=== PATIENT | female | born 1945 | race African-American/Black ===

== ENCOUNTER 2018-03-23 08:57 | Day surgery (SDC) | payer OTHER ==
[~2018-03-23 08:57] MED LIST: CEFAZOLIN SODIUM/DEXTROSE,ISO 1 GM/50 ML PIGGYBACK IV ONE; DEXAMETHASONE SOD PHOS 4 MG/ML VIAL ONE; FENTANYL CITRATE/PF 250 MCG/5 ML INJ. ONE; GLYCOPYRROLATE 0.2 MG/1 ML 1 ML ONE; HYDROmorphone HCL/PF 2 MG/ML VIAL ONE; LACTATED RINGERS 1,000 ML IV.SOLN IV ONE; LIDOCAINE HCL 2% PF 100MG/5ML VIAL IJ ONE; MIDAZOLAM HCL 2 MG/2 ML VIAL ONE; ONDANSETRON HCL/PF 4 MG/ 2ML VIAL ONE; PHENYLEPHRINE HCL 10 MG/1 ML ONE; PROPOFOL 200 MG/20 ML VIAL IV ONE; ROCURONIUM BROMIDE 10 MG/ML 5ML VIAL ONE; SEVOFLURANE 250 ML LIQUID IH ONE; SUGAMMADEX SODIUM 200 MG/2 ML VIAL IV ONE; ceFAZolin SODIUM 1 GM VIAL ONE; ePHEDrine SULFATE 50 MG/1 ML IVP ONE
[2018-03-23] MEDS ORDERED: LACTATED RINGERS 1,000 ML IV ONE (09:17)
[2018-03-23] MEDS ORDERED: HYDROmorphone HCL/PF 2 MG/ML VIAL ONE (20:29)
== END 2018-03-23 21:15 ==
LOC: OPSURG 08:57
PROVIDERS: ATTEND Orthopaedic Surgery
DX: M48.061 Spinal stenosis, lumbar region without neurogenic claudication (principal); M43.16 Spondylolisthesis, lumbar region
CPT/HCPCS: 20936; 22633; 22842; 22853; 36415; 63047; 63048; J0690; J1100; J1170; J2001; J2250; J2370; J2405; J2704; J3490; J7120; J2307

== ENCOUNTER 2018-03-23 20:59 | Inpatient (IN) | payer OTHER ==
[2018-03-23] MEDS ORDERED: ACETAMINOPHEN 500 MG TABLET PO PRN (21:04)
[2018-03-23] MEDS ORDERED: diphenhydrAMINE HCL 25 MG TABLET PO PRN (21:04)
[2018-03-23] MEDS ORDERED: PROMETHAZINE HCL 25 MG in 0.9 % SODIUM CHLORIDE 50 ML IV PRN (21:04)
[2018-03-23] MEDS ORDERED: ONDANSETRON HCL/PF 4 MG/ 2ML VIAL IVP PRN (21:04)
[2018-03-23] MEDS ORDERED: DIAZEPAM 5 MG TABLET PO PRN (21:04)
[2018-03-23] MEDS ORDERED: MORPHINE SULFATE 4 MG/ML VIAL IVP PRN (21:04)
[2018-03-23] MEDS ORDERED: LEVALBUTEROL HCL 1.25 MG/3 ML VIAL.NEB IH PRN (21:04)
--- NOTE | 2018-03-23 22:07 | History and Physical Report ---
History of Present Illnes - History of Present Illness Reason for Visit: S/P lumbar total disc replacement History of Present Illness: Patient is a 72-year-old female being admitted observation s/p lumbar total disc replacement. She has a chronic history of back pain with history of laminectomy to L2-3, L4-5. It was decided by patient and surgeon to move forward with lumbar surgical procedure. 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 Dressing has some moderate bleeding to the back- small area expressing blood- will reinforce dressing. We will get a.m. labs to check H & H and will monitor patient closely this evening. Explained that we would get her up and walk when she felt able, would try clear liquid diet and advance as tolerated. Patient appears to be resting comfortably at this time- daughter is at the bedside. Patient arrived to room around 21:00 this evening. 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 denies: Influenza Vaccine, Pneumococcal Vaccine Influenza Vaccine: No, Patient Refused Pneumonia Vaccine: No Resuscitation Status: Resusciation Status Resuscitation Status Full Code - Unable to Obtain History Unable to Obtain: No Review of Systems - Review of Systems Constitutional: Weakness Eyes: negative: pain, vision change ENT: negative: Ear Pain, Nose Discharge, Throat Pain Respiratory: negative: Cough, Shortness of Breath Cardiovascular: negative: Chest Pain, Light Headedness Gastrointestinal: negative: Nausea, Vomiting, Abdominal Pain Genitourinary: negative: Dysuria Musculoskeletal: Back Pain Skin: negative: Rash Neurological: Weakness. negative: Numbness, Change in Speech - Medications/Allergies Allergies/Adverse Reactions: Allergies Allergy/AdvReac Type Severity Reaction Status Date / Time alendronate sodium Allergy Unknown Verified 03/24/18 07:46 [From Fosamax] aspirin Allergy Unknown Verified 03/24/18 07:46 diclofenac Allergy Unknown Verified 03/24/18 07:46 guaifenesin Allergy Unknown Verified 03/24/18 07:46 raloxifene [From Evista] Allergy Unknown Verified 03/24/18 07:46 simvastatin [From Zocor] Allergy Unknown Verified 03/24/18 07:46 sodium citrate Allergy Unknown Verified 03/24/18 07:46 Sulfa (Sulfonamide Allergy Unknown Verified 03/24/18 07:46 Antibiotics) Home Medications: Home Medications Calcium Carbonate/Vitamin D3 [Calcium 600 + Vit D Caplet] 1 each PO DAILY 03/23/18 Cyclobenzaprine HCl 30 mg PO TID 03/23/18 Famotidine 40 mg PO DAILY 03/23/18 HYDROcodone /APAP 5/325 [[place] 5/325] 1 each PO Q4 PRN 03/23/18 Meloxicam 15 mg PO DAILY 03/23/18 [place]-3 Fatty Acids/Fish Oil [Fish Oil 1,000 mg Capsule] 1 each PO DAILY 03/23/18 Rosuvastatin Calcium [Crestor] 20 mg PO HS 03/23/18 Triamterene/Hydrochlorothiazid [Triamterene-Hctz 37.5-25 mg Tb] 1 each PO DAILY 03/23/18 Current Inpatient Medications: Current Inpatient Medications Acetaminophen (Tylenol Extra Strength) 500 mg PO Q4 PRN PRN Reason: for mild pain 1-4/fever Cyclobenzaprine HCl (Flexeril) 30 mg PO TID [facility] Diazepam (Valium) 5 mg PO Q8H PRN PRN Reason: Anxiety/muscle spasm Diphenhydramine HCl (Benadryl) 25 mg PO Q4 PRN PRN Reason: Itching or Pruritis Potassium Chloride/Dextrose/Sod Cl ([id number]) 1,000 mls @ 75 mls/hr IV Q12H [facility] Promethazine HCl 25 mg/ Sodium (Chloride) 51 mls @ 600 mls/hr IV Q6 PRN PRN Reason: Nausea / Vomiting Stop: 03/27/18 21:03 Levalbuterol HCl (Xopenex Inh Soln) 1.25 mg IH Q4H PRN PRN Reason: shortness of breath Miscellaneous (Famotidine [Famotidine]) 40 mg PO DAILY REPLACED BY [facility] Miscellaneous (Meloxicam [Meloxicam]) 15 mg PO DAILY REPLACED BY [facility] Miscellaneous (Rosuvastatin Calcium [Crestor]) 20 mg PO HS REPLACED BY [facility] Morphine Sulfate () 4 mg IVP Q4 PRN PRN Reason: Severe Pain Ondansetron HCl (Zofran 4 Mg/2 Ml) 4 mg IVP Q6H PRN PRN Reason: Nausea / Vomiting Stop: 03/27/18 21:03 Oxycodone/Acetaminophen (Percocet 5-325 Mg Tablet) 2 each PO Q4 PRN PRN Reason: Moderate pain 5-7 Triamterene/HCTZ (Dyazide 37.5/25) 1 each PO DAILY REPLACED BY [facility] Exam - Exam Vital Signs: Vital Signs (72 hours) 03/23/18 03/23/18 21:04 21:19 Temperature 96.5 F L 97.2 F L Pulse Rate [ 87 96 H Left] Respiratory 20 20 Rate Blood Pressure 112/58 129/59 [Left Arm] O2 Sat by Pulse 99 95 Oximetry General: Alert, Oriented to Person, Oriented to Place, Oriented to Time, Cooperative, Mild distress HEENT: Atraumatic, PERRLA, Mouth Mucous membr. moist/[place], Nose Mucous membr. moist/[place] Neck: Normal Range of Motion Carotids: No bruit Lungs: Clear to auscultation, Normal air movement, Speaks full Sentences Cardiovascular: Regular rate, Normal S1, Normal S2 Peripheral Edema: none Peripheral Pulses: 2+ Abdomen: Soft, Decreased Bowel Sounds Integumentary: Normal, [place], Warm, Dry, Other (moderate bleeding to drsg- reinforced dressing) Extremities: No edema, Normal pulses, No tenderness/swelling Neurological: Normal speech, Strength Equal Bilat, Sensation intact Psych/Mental Status: Mental status NL, Mood NL, Appropriate Affect, Intact Judgment Assessment/Plan - Assessment/Plan (1) Status post lumbar surgery Status: Acute Current Visit: No Assessment: Incision site dressed has some bloody discharge oozing through the dressing- incision is intact- will reinforce dressing. Neurovasculars intact including sensation. LCTA, hypobowel sounds, patient is moving all extremities without difficulty- strong equal obstetrical nurse of both hands- strong pushes and pulls of both lower extremities. Will start patient on clear liquid diet and advance as tolerated. Plan: Nursing will complete neuro checks frequently, SCDs while in bed, frequent ambulation, frequent use of incentive spirometer, will hold heparin due to hemophiac trait (2) Hypertension Status: Acute Current Visit: No Qualifiers: Hypertension type: essential hypertension Qualified Code(s): I10 - Essential (primary) hypertension Assessment: Stable on home meds Plan: Will continue home medications (3) Arthritis Status: Acute Current Visit: No Assessment: Stable on home meds Plan: Will continue on home medications (4) Hemophilia Status: Acute Current Visit: No Assessment: Patient has bleeding noted to the posterior dressing site- reinforced dressing Plan: Will hold toradol and heparin (5) Spinal stenosis of lumbar region Status: Acute Current Visit: No Assessment: S/p lumbar total disc replacement Plan: Will monitor treatment (6) GERD (gastroesophageal reflux disease) Status: Acute Current Visit: No Qualifiers: Esophagitis presence: with esophagitis Qualified Code(s): K21.0 - Gastro- esophageal reflux disease with esophagitis Assessment: Stable on home meds Plan: Will continue home medications (7) Hypothyroid Status: Acute Current Visit: No Assessment: sTable on home meds Plan: Will continue on home meds VTE Assessment - RISK FACTOR SCORE VTE RISK FACTOR SCORES: AGE OVER 60 YEARS, MAJOR SURGERY/ANESTHESIA TIME > 1 HOUR - RISK VTE MODERATE RISK: SCORE OF 2 (RISK PROXIMAL DVT 2-4%) PROPHYAXIS NEEDED (will hold heparin d/t hemophilia and bleeding. ambulate frequently, SCDs in bed)
[2018-03-23] MEDS: POTASSIUM CHLOR 20 MEQ D51/2NS 1,000 ML IV SCH (22:31)
[2018-03-24 03:05] VITALS: BMI 23.7
[2018-03-24] MEDS ORDERED: RED CRASH CART TAGS 1 EACH MC ONE (05:32)
[2018-03-24 05:55] LABS: BASOPHILS % 0.3 (0.0-1.5); EOSINOPHILS % 0.7 % (0.0-6.8); MEAN CORPUSCULAR HEMOGLOBIN 30.8 pg (28.0-34.0); MONOCYTES % 5.7 % (0.0-11.0); NEUTROPHILS # 12.2 # k/uL (1.4-7.7)
[2018-03-24 06:04] LABS: eGFR (Non-African) > 60
[2018-03-24] MEDS ORDERED: CYCLOBENZAPRINE HCL 5 MG TABLET ONE ×2 (08:16→10:05)
[2018-03-24] MEDS: TRIAMTERENE/HCTZ 37.5/25MG TAB PO SCH (10:00)
[2018-03-24] MEDS: FAMOTIDINE 20 MG TABLET PO SCH (10:01)
[2018-03-24] MEDS: CYCLOBENZAPRINE HCL 10 MG TABLET PO SCH ×3 (10:01→20:55)
--- NOTE | 2018-03-24 10:52 | Inpatient Progress Note ---
Subjective - Required Recertification Statement I anticipate X number of days because-include discharge plan: 1 - Review of Systems Events since last encounter: Ms. Diaz is not having much pain. She had some bleeding after her surgery, however it has essentially stopped at this point. She has a small amount of drainage (only a few cc) at the superior aspect of her wound. She has not yet ambulated. She remains in very good spirits. General: Denies: Chills HEENT: Denies: Head Aches Pulmonary: Denies: Dyspnea, Cough Cardiovascular: Denies: Chest Pain Gastrointestinal: Denies: Nausea, Vomiting Genitourinary: Denies: Dysuria Musculoskeletal: Back Pain (minimal with position change). Denies: Neck Pain, Shoulder Pain Neurological: Denies: Weakness, Numbness Objective - Exam Vitals and I&O: Vital Signs Temp 98.3 F 03/24/18 09:27 Pulse 105 H 03/24/18 09:27 Resp 18 03/24/18 09:27 BP 129/64 03/24/18 09:27 Pulse Ox 100 03/24/18 09:27 Intake & Output 03/23/18 03/23/18 03/24/18 11:59 23:59 11:59 Intake Total 1000 Balance 1000 Weight 62.7 kg Intake: IV 600 Right AC 600 Oral 400 Other: Voiding Method Bedside Commode Bedside Commode # Voids 0 General: Alert, Oriented to Person, Oriented to Place, Oriented to Time HEENT: Atraumatic, PERRLA, EOMI Neck: Supple, No JVD Lungs: Clear to auscultation Cardiovascular: Regular rate Abdomen: Normal bowel sounds, Soft, No tenderness Extremities: No clubbing, No cyanosis Skin: Normal, Warm, Dry, Other (lower back incision is with only mininal drainage at the superior aspect of the wound.) Neurological: Normal speech Psych/Mental Status: Mental status NL - Results Results: Laboratory Results WBC 13.80 K/ul (4.00-12.00) H 03/24/18 06:00 RBC 2.70 M/ul (3.90-5.20) L 03/24/18 06:00 Hgb 8.3 g/dL (12.0-16.0) L 03/24/18 06:00 Hct 25.0 % (34.5-46.5) L 03/24/18 06:00 MCV 92.0 fl (80.0-100.0) 03/24/18 06:00 MCH 30.8 pg (28.0-34.0) 03/24/18 06:00 MCHC 33.3 g/dL (30.0-36.0) 03/24/18 06:00 RDW 13.1 % (11.3-14.3) 03/24/18 06:00 Plt Count 137 K/mm3 (130-400) 03/24/18 06:00 Neut % (Auto) 88.2 % (39.0-79.0) H 03/24/18 06:00 Lymph % (Auto) 5.1 % (16.0-50.0) L 03/24/18 06:00 [place] % (Auto) 5.7 % (0.0-11.0) 03/24/18 06:00 Eos % (Auto) 0.7 % (0.0-6.8) 03/24/18 06:00 Baso % (Auto) 0.3 (0.0-1.5) 03/24/18 06:00 Neut # (Auto) 12.2 # k/uL (1.4-7.7) H 03/24/18 06:00 Lymph # (Auto) 0.7 # k/uL (0.6-4.0) 03/24/18 06:00 [place] # (Auto) 0.8 # k/uL (0.0-0.9) 03/24/18 06:00 Eos # (Auto) 0.1 # k/uL (0.0-0.6) 03/24/18 06:00 Baso # (Auto) 0.0 # k/uL (0.0-0.5) 03/24/18 06:00 Sodium 133 mmol/L (136-145) L 03/24/18 06:00 Potassium 3.7 mmol/L (3.5-5.1) 03/24/18 06:00 Chloride 100 mmol/L (98-107) 03/24/18 06:00 Carbon Dioxide 30 mmol/L (22-30) 03/24/18 06:00 BUN 18 mg/dL (7-17) H 03/24/18 06:00 Creatinine 0.91 mg/dL (0.52-1.04) 03/24/18 06:00 Estimated Creat Clear 66 03/24/18 06:00 Est GFR ( Amer) > 60 (60-) 03/24/18 06:00 Est GFR (Non-Af Amer) > 60 (60-) 03/24/18 06:00 Glucose 183 mg/dL (74-106) H 03/24/18 06:00 Calcium 8.4 mg/dL (8.4-10.2) 03/24/18 06:00 Assessment/Plan - Assessment/Plan (1) Postoperative anemia Status: Acute Current Visit: Yes Assessment: Hemoglobin has dropped from 11.9 to 8.3 Plan: Will recheck CBC this afternoon at 1500 (2) GERD (gastroesophageal reflux disease) Status: Acute Current Visit: Yes Qualifiers: Esophagitis presence: with esophagitis Qualified Code(s): K21.0 - Gastro- esophageal reflux disease with esophagitis Assessment: Continue GI prophylaxis with famotidine (3) Hemophilia Status: Acute Current Visit: Yes Assessment: Observe for bleeding (4) Spinal stenosis of lumbar region Status: Acute Current Visit: Yes Assessment: S/P TLIF, laminectomy of multiple levels Plan: PT to see today (5) Status post lumbar surgery Status: Acute Current Visit: Yes Assessment: Ambulate
[2018-03-24] MEDS: Non-Formulary 1 EACH (Meloxicam [Meloxicam] 15 MG) PO SCH (11:20)
[2018-03-24] MEDS: oxyCODONE/ACETAMINOPHEN 5/325 TABLET PO PRN ×3 (11:41→20:55)
[2018-03-24] MEDS: POTASSIUM CHLOR 20 MEQ D51/2NS 1,000 ML IV SCH (13:15)
[2018-03-24 15:43] LABS: MEAN CORPUSCULAR HEMOGLOBIN 30.8 pg (28.0-34.0)
[2018-03-24] MEDS ORDERED: diphenhydrAMINE HCL 25 MG TABLET PO PRN (16:15)
[2018-03-24] MEDS ORDERED: 0.9 % SODIUM CHLORIDE 1,000 ML IV ONE (16:44)
[2018-03-24] MEDS ORDERED: 0.9 % SODIUM CHLORIDE 250 ML IV ONE (20:03)
[2018-03-24] MEDS: ROSUVASTATIN CALCIUM 20 MG PO SCH (20:58)
[2018-03-25] MEDS: oxyCODONE/ACETAMINOPHEN 5/325 TABLET PO PRN ×2 (02:51→17:06)
[2018-03-25] MEDS: POTASSIUM CHLOR 20 MEQ D51/2NS 1,000 ML IV SCH ×2 (03:00→12:42)
[2018-03-25 07:19] LABS: MEAN CORPUSCULAR HEMOGLOBIN 30.6 pg (28.0-34.0)
--- NOTE | 2018-03-25 08:19 | Discharge Summary ---
Discharge Summary - Discharge Sumary History of Present Illness: 72 year old female with chronic and worsening mechanical back pain who was seen by Dr. Bro and evaluated for TLIF L4-S1 and laminectomy L2,3,4. She had not had any improvement with therapy, and was felt to be a good surgical candidate for the above surgery. Condition at Discharge: Stable Home Medications: Ambulatory Orders Medication Instructions Recorded Calcium Carbonate/Vitamin D3 1 each PO DAILY 03/23/18 [Calcium 600 + Vit D Caplet] Cyclobenzaprine HCl 30 mg PO TID 03/23/18 Famotidine 40 mg PO DAILY 03/23/18 HYDROcodone /APAP 5/325 [[place] 1 each PO Q4 PRN 03/23/18 5/325] Meloxicam 15 mg PO DAILY 03/23/18 [place]-3 Fatty Acids/Fish Oil [Fish 1 each PO DAILY 03/23/18 Oil 1,000 mg Capsule] Rosuvastatin Calcium [Crestor] 20 mg PO HS 03/23/18 Triamterene/Hydrochlorothiazid 1 each PO DAILY 03/23/18 [Triamterene-Hctz 37.5-25 mg Tb] Consultations this Visit: None Procedures this Visit: Other (TLIF L4-S1, laminectomy L2,3,4) Allergies/Adverse Reactions: Allergies Allergy/AdvReac Type Severity Reaction Status Date / Time alendronate sodium Allergy Unknown Verified 03/24/18 07:46 [From Fosamax] aspirin Allergy Unknown Verified 03/24/18 07:46 diclofenac Allergy Unknown Verified 03/24/18 07:46 guaifenesin Allergy Unknown Verified 03/24/18 07:46 raloxifene [From Evista] Allergy Unknown Verified 03/24/18 07:46 simvastatin [From Zocor] Allergy Unknown Verified 03/24/18 07:46 sodium citrate Allergy Unknown Verified 03/24/18 07:46 Sulfa (Sulfonamide Allergy Unknown Verified 03/24/18 07:46 Antibiotics) Patient Problems: Current Active Problems Problem Status Onset Hemophilia carrier Acute Discharge Summary: Patient had no intraoperative complications, however she did have some bleeding from her wound. Her hemoglobin dropped from 11.5 preoperatively to 8.3, and then 7.3 by the afternoon. As a result, she was transfused two units of packed red blood cells. By the morning of 03/25/18 her hemoglobin was 10.1. She could not ambulate independently, and so will be admitted to [facility] in [facility] for continued therapy. Her medications are continued as prior to admission, with the addition of percocet 7.5/325 1-2 po q4-6 hours prn pain. - Final Diagnosis (1) Postoperative anemia Problems: Transfused two units of PRBC (2) GERD (gastroesophageal reflux disease) Problems: Chronic/stable (3) Hemophilia Problems: Continue to watch for further bleeding (4) Spinal stenosis of lumbar region Problems: s/p laminectomy at L2,3,4 and TLIF L5/S1
[2018-03-25] MEDS: CYCLOBENZAPRINE HCL 10 MG TABLET PO SCH ×3 (09:24→18:24)
[2018-03-25] MEDS: FAMOTIDINE 20 MG TABLET PO SCH (09:24)
[2018-03-25] MEDS: Non-Formulary 1 EACH (Meloxicam [Meloxicam] 15 MG) PO SCH (09:27)
[2018-03-25] MEDS: TRIAMTERENE/HCTZ 37.5/25MG TAB PO SCH (09:28)
[2018-03-25] MEDS: ROSUVASTATIN CALCIUM 20 MG PO SCH (21:04)
[2018-03-26] MEDS: oxyCODONE/ACETAMINOPHEN 5/325 TABLET PO PRN ×4 (00:23→15:45)
[2018-03-26] MEDS: POTASSIUM CHLOR 20 MEQ D51/2NS 1,000 ML IV SCH ×2 (03:27→09:36)
[2018-03-26] MEDS: Non-Formulary 1 EACH (Meloxicam [Meloxicam] 15 MG) PO SCH (09:23)
[2018-03-26] MEDS: TRIAMTERENE/HCTZ 37.5/25MG TAB PO SCH (09:23)
[2018-03-26] MEDS: FAMOTIDINE 20 MG TABLET PO SCH (09:23)
[2018-03-26 14:33] VITALS: BP 122/61
[2018-03-26] MEDS ORDERED: CLINDAMYCIN PHOSPHATE/D5W 50 ML IV ONE (17:05)
== END 2018-03-26 16:30 | disposition home or self-care (01) | DRG 812 ==
LOC: OBSVTOIN 20:59 → INTOOBSV 20:59 → SOUTH 20:59 → UNDOADMOB 20:59 → SOUTH 21:30 → OBSVTOIN 21:30 → INTOOBSV 03-24 10:12 → UNDODISIN 03-26 16:30
PROVIDERS: ADMIT Family Medicine; ATTEND Family Medicine
DX: D64.9 Anemia, unspecified (principal); I10 Essential (primary) hypertension; M48.061 Spinal stenosis, lumbar region without neurogenic claudication; M43.16 Spondylolisthesis, lumbar region; M19.90 Unspecified osteoarthritis, unspecified site; E03.9 Hypothyroidism, unspecified; R42 Dizziness and giddiness; Z14.01 Asymptomatic hemophilia A carrier
CPT/HCPCS: 36415; 80048; 85025; 85027; 86885; 86900; 86920; 93005; 97161; 97165; 97530; 97535; A9270; J7030; J7050; J7070; Q0163; 36430; 99222; 99232; 99238; P9040; G0378; G0379

== ENCOUNTER 2018-06-19 06:38 | Inpatient (IN) | payer OTHER ==
[2018-06-19] MEDS ORDERED: GELATIN SPONGE,ABSORB/PORCINE (SIZE 100) 1 EACH SPONGE TP ONE (08:48)
[2018-06-19] MEDS ORDERED: LIDOCAINE HCL 2% PF 100MG/5ML VIAL IJ ONE (08:48)
[2018-06-19] MEDS ORDERED: HEPARIN SODIUM PORCINE IR ONE (08:48)
[2018-06-19] MEDS ORDERED: ALBUMIN IV ONE (08:48)
[2018-06-19] MEDS ORDERED: SEVOFLURANE 250 ML LIQUID IH ONE (08:48)
[2018-06-19] MEDS ORDERED: PHENYLEPHRINE HCL 10 MG/1 ML ONE (08:48)
[2018-06-19] MEDS ORDERED: THROMBIN (BOVINE) 20,000 UNIT VIAL TP ONE (08:48)
[2018-06-19] MEDS ORDERED: ePHEDrine SULFATE 50 MG/1 ML IVP ONE (08:48)
[2018-06-19] MEDS ORDERED: ONDANSETRON HCL/PF 4 MG/ 2ML VIAL ONE (08:48)
[2018-06-19] MEDS ORDERED: PROPOFOL 200 MG/20 ML VIAL IV ONE (08:48)
[2018-06-19] MEDS ORDERED: ceFAZolin SODIUM 1 GM VIAL ONE (08:48)
[2018-06-19] MEDS ORDERED: ROCURONIUM BROMIDE 10 MG/ML 5ML VIAL ONE (08:48)
[2018-06-19] MEDS ORDERED: DEXAMETHASONE SODIUM PHOSPHATE 10 MG/ML VIAL ONE (08:48)
[2018-06-19] MEDS ORDERED: SUGAMMADEX SODIUM 200 MG/2 ML VIAL IV ONE (08:48)
[2018-06-19] MEDS ORDERED: NORMAL SALINE 1,000 ML IV.SOLN IV ONE (08:48)
[2018-06-19] MEDS ORDERED: fentaNYL CITRATE/PF 100 MCG/2 ML INJ. ONE ×2 (08:48)
[2018-06-19] MEDS ORDERED: BACITRACIN 50,000 UNIT VIAL IR ONE (08:48)
[2018-06-19] MEDS ORDERED: LACTATED RINGERS 1,000 ML IV.SOLN IV ONE ×2 (08:48)
[2018-06-19 13:49] LABS: MEAN CORPUSCULAR HEMOGLOBIN 30.5 pg (28.0-34.0)
[2018-06-19] MEDS ORDERED: KETOROLAC TROMETHAMINE 30 MG/1ML VIAL IV PRN (14:39)
[2018-06-19] MEDS ORDERED: ONDANSETRON HCL/PF 4 MG/ 2ML VIAL IVP PRN (14:39)
[2018-06-19] MEDS ORDERED: PROMETHAZINE HCL 25 MG in 0.9 % SODIUM CHLORIDE 50 ML IV PRN (14:39)
[2018-06-19] MEDS ORDERED: LEVALBUTEROL NEB 1.25 MG/3 ML VIAL.NEB IH PRN (14:39)
[2018-06-19] MEDS ORDERED: fentaNYL CITRATE/PF 100 MCG/2 ML INJ. IVP PRN ×2 (14:39)
[2018-06-19 15:06] VITALS: BMI 21.8
[2018-06-19] MEDS: 0.9 % SODIUM CHLORIDE 1,000 ML IV SCH ×2 (17:32→18:34)
--- NOTE | 2018-06-19 20:36 | History and Physical Report ---
History of Present Illnes - History of Present Illness Reason for Visit: Transformaninal lumbar interbody fusion bilateral L4/5 Revision History of Present Illness: Patient is a 72-year-old female being admitted s/p Transformaninal lumbar interbody fusion bilateral L4/5 Revision with hemophilia. She has a chronic history of back pain with history of laminectomy L4-5 with hardware malfunction. It was decided by patient and surgeon to move forward with revision of lumbar surgical procedure. 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 Dressing is dry and intact to the lumbar region. We will get a.m. labs to check H & H and will monitor patient closely this evening. Explained that we would get her up and walk when she felt able, would try clear liquid diet and advance as tolerated. Patient appears to be resting comfortably at this time- daughter is at the bedside. 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 denies: Influenza Vaccine, Pneumococcal Vaccine Pneumonia Vaccine: No Resuscitation Status: Resusciation Status Resuscitation Status Full Code Review of Systems - Review of Systems Constitutional: negative: Fever, Chills Eyes: negative: pain, conjunctivae inflammation, eyelid inflammation ENT: negative: Nose Discharge, Throat Pain Respiratory: negative: Cough, Shortness of Breath Cardiovascular: negative: Chest Pain Gastrointestinal: negative: Nausea, Vomiting, Abdominal Pain Genitourinary: negative: Dysuria Musculoskeletal: Back Pain Skin: Other (Dressing site to lumbar) Neurological: Weakness - Medications/Allergies Allergies/Adverse Reactions: Allergies Allergy/AdvReac Type Severity Reaction Status Date / Time alendronate sodium Allergy Unknown Verified 03/24/18 07:46 [From Fosamax] aspirin Allergy Unknown Verified 03/24/18 07:46 diclofenac Allergy Unknown Verified 03/24/18 07:46 guaifenesin Allergy Unknown Verified 03/24/18 07:46 raloxifene [From Evista] Allergy Unknown Verified 03/24/18 07:46 simvastatin [From Zocor] Allergy Unknown Verified 03/24/18 07:46 sodium citrate Allergy Unknown Verified 03/24/18 07:46 Sulfa (Sulfonamide Allergy Unknown Verified 03/24/18 07:46 Antibiotics) Current Inpatient Medications: Current Inpatient Medications Diazepam (Valium) 5 mg PO Q8H PRN PRN Reason: Anxiety/muscle spasm Docusate Sodium (Colace) 100 mg PO BID [facility] Stop: 06/21/18 09:01 Famotidine (Pepcid) 20 mg IVP BID [facility] Stop: 06/23/18 20:59 Fentanyl Citrate (Sublimaze) 50 mcg IVP Q2H PRN PRN Reason: Moderate pain 5-7 Stop: 06/20/18 14:38 Fentanyl Citrate (Sublimaze) 100 mcg IVP Q2H PRN PRN Reason: For Severe Pain 8-10 Stop: 06/20/18 14:38 Sodium Chloride (Normal Saline) 1,000 mls @ 100 mls/hr IV Q10H [facility] Stop: 06/20/18 14:44 Last Admin: 06/19/18 18:34 Dose: 100 mls/hr Promethazine HCl 25 mg/ Sodium (Chloride) 51 mls @ 200 mls/hr IV Q6 PRN PRN Reason: Nausea / Vomiting Stop: 06/23/18 14:38 Ketorolac Tromethamine (Toradol) 30 mg IV Q6H PRN PRN Reason: For Mild Pain 1-4 Stop: 06/23/18 14:38 Levalbuterol HCl (Xopenex Neb) 1.25 mg IH Q4H PRN PRN Reason: shortness of breath Ondansetron HCl (Zofran) 4 mg IVP Q6H PRN PRN Reason: Nausea / Vomiting Stop: 06/23/18 14:38 Oxycodone/Acetaminophen (Percocet 5-325) 2 each PO Q4 PRN PRN Reason: Moderate pain 5-7 Exam - Exam Vital Signs: Vital Signs (72 hours) 06/19/18 06/19/18 06/19/18 14:39 14:40 14:59 Temperature 98.8 F Pulse Rate 96 H Pulse Rate [ 84 Right] Respiratory 20 Rate Blood Pressure 119/64 [Right Arm] O2 Sat by Pulse 100 100 Oximetry 06/19/18 06/19/18 06/19/18 15:01 15:26 16:15 Temperature 98 F 98.8 F 98.5 F Pulse Rate Pulse Rate [ 105 H 92 H 106 H Right] Respiratory 20 20 18 Rate Blood Pressure 115/68 119/67 120/72 [Right Arm] O2 Sat by Pulse 99 100 100 Oximetry 06/19/18 06/19/18 06/19/18 17:16 17:29 17:33 Temperature 98.5 F Pulse Rate 114 H Pulse Rate [ 117 H Right] Respiratory 20 Rate Blood Pressure 102/60 [Right Arm] O2 Sat by Pulse 99 99 Oximetry 06/19/18 06/19/18 17:34 18:00 Temperature 98.6 F Pulse Rate Pulse Rate [ 97 H Right] Respiratory 20 18 Rate Blood Pressure 112/53 [Right Arm] O2 Sat by Pulse 99 Oximetry General: Alert, Oriented to Person, Oriented to Place, Oriented to Time, Cooperative, Mild distress, Average Body Habits HEENT: PERRLA, Mouth Mucous membr. moist/[place], Nose Mucous membr. moist/[place] Neck: Normal Range of Motion Carotids: No bruit Lungs: Clear to auscultation, Normal air movement, Speaks full Sentences Cardiovascular: Regular rate, Normal S1, Normal S2, Other (Cell infuser intact) Peripheral Edema: none Peripheral Pulses: 2+ Abdomen: Soft, Decreased Bowel Sounds Integumentary: Normal, [place], Warm, Dry, Other (SURGICAL DRSG ON BACK IS DRY AND INTACT) Extremities: No edema, Normal pulses, No tenderness/swelling Neurological: Normal speech, Strength Equal Bilat, Normal tone, Sensation intact Psych/Mental Status: Mental status NL, Mood NL, Appropriate Affect - Laboratory Results Laboratory Results: Laboratory Results 06/19/18 13:43 WBC 5.60 RBC 2.91 L Hgb 8.9 L Hct 26.2 L MCV 90.0 MCH 30.5 MCHC 33.8 RDW 13.3 Plt Count 118 L Assessment/Plan - Assessment/Plan (1) GERD (gastroesophageal reflux disease) Status: Acute Current Visit: No Qualifiers: Esophagitis presence: with esophagitis Qualified Code(s): K21.0 - Gastro- esophageal reflux disease with esophagitis Plan: Will continue with Pepcid IV BID (2) Hypertension Status: Acute Current Visit: No Qualifiers: Hypertension type: essential hypertension Qualified Code(s): I10 - Essential (primary) hypertension Plan: Will monitor closely and continue with home medications (3) Postoperative anemia Status: Acute Current Visit: No Plan: Will get H & H in the morning and remove cell infuser (4) Spinal stenosis of lumbar region Status: Acute Current Visit: No Plan: Will monitor neuro's s/p surgery (5) Status post lumbar surgery Status: Acute Current Visit: No Assessment: Incision site dressing is without drainage. Neurovasculars intact including sensation. LCTA, hypobowel sounds, patient is moving all extremities without difficulty- strong equal yard foreman of both hands- strong pushes and pulls of both lower extremities. Will start patient on clear liquid diet and advance as tolerated. Plan: Nursing will complete neuro checks frequently, SCDs while in bed, frequent ambulation, frequent use of incentive spirometer, will hold heparin due to hemophiac trait VTE Assessment - RISK FACTOR SCORE VTE RISK FACTOR SCORES: AGE OVER 60 YEARS, MAJOR SURGERY/ANESTHESIA TIME > 1 HOUR - RISK VTE MODERATE RISK: SCORE OF 2 (RISK PROXIMAL DVT 2-4%) PROPHYAXIS NEEDED ((will hold heparin d/t hemophilia and bleeding. ambulate frequently, SCDs in bed))
[2018-06-19] MEDS: DOCUSATE SODIUM 100 MG CAPSULE PO SCH (22:27)
[2018-06-19] MEDS: FAMOTIDINE 20 MG/2 ML VIAL IVP SCH (22:28)
[2018-06-20] MEDS: 0.9 % SODIUM CHLORIDE 1,000 ML IV SCH ×2 (02:50→12:07)
[2018-06-20] MEDS: oxyCODONE/ACETAMINOPHEN 5/325 TABLET PO PRN ×3 (06:51→20:18)
[2018-06-20 07:07] LABS: BASOPHILS % 0.3 % (0.0-1.5); EOSINOPHILS % 0.8 % (0.0-6.8); MEAN CORPUSCULAR HEMOGLOBIN 30.7 pg (28.0-34.0); MONOCYTES % 9.6 % (0.0-11.0); NEUTROPHILS # 8.3 # k/uL (1.4-7.7)
[2018-06-20 07:08] LABS: eGFR (Non-African) > 60
--- NOTE | 2018-06-20 07:48 | Inpatient Progress Note ---
Subjective - Required Recertification Statement I anticipate X number of days because-include discharge plan: 1 - Review of Systems Events since last encounter: Patient sitting up in bed this morning-having minimal discomfort- states that she feels much better after surgery- she has been up ambulating to the bathroom- would like to get up and walk this morning. Will start patient on Ferrous Sulfate (she states they had started her on this prior to surgery)-we will continue. Assessment is negative- dressing is dry and intact. Daughter is at the bedside. General: Fatigue HEENT: Denies: Visual Changes Pulmonary: Denies: Dyspnea, Cough Cardiovascular: Denies: Chest Pain, Light Headedness Gastrointestinal: Denies: Nausea, Vomiting, Abdominal Pain Genitourinary: Denies: Dysuria Musculoskeletal: Back Pain Neurological: Weakness Objective - Exam Vitals and I&O: Vital Signs Temp 97.9 F 06/20/18 06:00 Pulse 90 06/20/18 06:00 Resp 18 06/20/18 06:00 BP 133/64 06/20/18 06:00 Pulse Ox 98 06/20/18 06:00 Intake & Output 06/19/18 06/19/18 06/20/18 11:59 23:59 11:59 Intake Total 580 1200 Output Total 0 Balance 580 1200 Weight 57.606 kg Intake: IV 100 1200 left hand 100 1200 Oral 480 Output: Urine 0 Other: # Voids 0 3 # Bowel Movements 0 General: Alert, Oriented to Person, Oriented to Place, Oriented to Time, Cooperative, Mild distress, Average Body Habits HEENT: PERRLA, Mouth Mucous membr. moist/[place], Nose Mucous membr. moist/[place] Neck: Supple, +2 carotid pulse wo bruit Lungs: Clear to auscultation, Normal air movement, Speaks full Sentences Cardiovascular: Normal S1, Normal S2, Regularly Irregular Abdomen: Normal bowel sounds, Soft, No tenderness Extremities: No edema, Normal pulses, No tenderness/swelling Skin: Warm, Dry, Pale, Other (dressing to the back dry and intact) Neurological: Normal speech, Strength Equal Bilat, Normal tone, Sensation intact Psych/Mental Status: Mental status NL, Mood NL, Appropriate Affect, Intact Judgment - Results Results: Laboratory Results WBC 10.80 K/ul (4.00-12.00) 06/20/18 06:30 RBC 2.61 M/ul (3.90-5.20) L 06/20/18 06:30 Hgb 8.0 g/dL (11.5-16.0) L 06/20/18 06:30 Hct 23.6 % (34.5-46.5) L 06/20/18 06:30 MCV 90.0 fl (80.0-100.0) 06/20/18 06:30 MCH 30.7 pg (28.0-34.0) 06/20/18 06:30 MCHC 33.9 g/dL (30.0-36.0) 06/20/18 06:30 RDW 14.2 % (11.3-14.3) 06/20/18 06:30 Plt Count 116 K/mm3 (130-400) L 06/20/18 06:30 Neut % (Auto) 76.6 % (39.0-79.0) 06/20/18 06:30 Lymph % (Auto) 12.7 % (16.0-50.0) L 06/20/18 06:30 [place] % (Auto) 9.6 % (0.0-11.0) 06/20/18 06:30 Eos % (Auto) 0.8 % (0.0-6.8) 06/20/18 06:30 Baso % (Auto) 0.3 % (0.0-1.5) 06/20/18 06:30 Neut # (Auto) 8.3 # k/uL (1.4-7.7) H 06/20/18 06:30 Lymph # (Auto) 1.4 # k/uL (0.6-4.0) 06/20/18 06:30 [place] # (Auto) 1.0 # k/uL (0.0-0.9) H 06/20/18 06:30 Eos # (Auto) 0.1 # k/uL (0.0-0.6) 06/20/18 06:30 Baso # (Auto) 0.0 # k/uL (0.0-0.5) 06/20/18 06:30 Sodium 138 mmol/L (137-145) 06/20/18 06:30 Potassium 3.8 mmol/L (3.5-5.1) 06/20/18 06:30 Chloride 105 mmol/L (98-107) 06/20/18 06:30 Carbon Dioxide 31 mmol/L (22-30) H 06/20/18 06:30 BUN 13 mg/dL (7-17) 06/20/18 06:30 Creatinine 0.86 mg/dL (0.52-1.04) 06/20/18 06:30 Estimated Creat Clear 64 06/20/18 06:30 Est GFR ( Amer) > 60 (60-) 06/20/18 06:30 Est GFR (Non-Af Amer) > 60 (60-) 06/20/18 06:30 Glucose 111 mg/dL (74-106) H 06/20/18 06:30 Calcium 8.8 mg/dL (8.4-10.2) 06/20/18 06:30 Assessment/Plan - Assessment/Plan (1) GERD (gastroesophageal reflux disease) Status: Acute Current Visit: No Qualifiers: Esophagitis presence: with esophagitis Qualified Code(s): K21.0 - Gastro- esophageal reflux disease with esophagitis Assessment: Stable Plan: Will continue with Pepcid IV bid (2) Hypertension Status: Acute Current Visit: No Qualifiers: Hypertension type: essential hypertension Qualified Code(s): I10 - Essential (primary) hypertension Assessment: Stable (3) Postoperative anemia Status: Acute Current Visit: No Plan: Will start Ferrous sulfate- patient denies dizziness, lightheaded, palpitations (4) Spinal stenosis of lumbar region Status: Acute Current Visit: No Plan: S/p Lumbar surgery (5) Status post lumbar surgery Status: Acute Current Visit: No Plan: Dressing intact-dry, Using IS, ambulating
[2018-06-20] MEDS ORDERED: CYCLOBENZAPRINE HCL 10 MG TABLET PO SCH (09:00)
[2018-06-20] MEDS: DOCUSATE SODIUM 100 MG CAPSULE PO SCH ×2 (09:41→20:09)
[2018-06-20] MEDS: TRIAMTERENE/HCTZ 37.5/25MG TAB PO SCH (09:41)
[2018-06-20] MEDS: OMEGA PO SCH (09:42)
[2018-06-20] MEDS: FATTY ACIDS PO SCH (09:42)
[2018-06-20] MEDS: FISH OIL PO SCH (09:42)
[2018-06-20] MEDS: CYCLOBENZAPRINE HCL 10 MG TABLET PO SCH ×3 (09:42→20:09)
[2018-06-20] MEDS: CALCIUM CARBONATE PO SCH (09:43)
[2018-06-20] MEDS: VITAMIN D3 PO SCH (09:43)
[2018-06-20] MEDS: [UNRECOGNIZED DRUG - OTHER] PO SCH (09:43)
[2018-06-20] MEDS: FAMOTIDINE 20 MG/2 ML VIAL IVP SCH ×2 (09:44→20:12)
[2018-06-20] MEDS: FERROUS SULFATE 325 MG TABLET PO SCH ×2 (11:42→18:21)
[2018-06-20] MEDS: POLYETHYLENE GLYCOL 3350 17 GM POWD.PACK PO SCH (11:43)
[2018-06-20] MEDS: ATORVASTATIN CALCIUM 20 MG TABLET PO SCH (20:09)
[2018-06-21] MEDS: oxyCODONE/ACETAMINOPHEN 5/325 TABLET PO PRN ×3 (03:14→20:29)
[2018-06-21 06:11] LABS: BASOPHILS % 0.4 % (0.0-1.5); EOSINOPHILS % 1.4 % (0.0-6.8); MEAN CORPUSCULAR HEMOGLOBIN 30.5 pg (28.0-34.0); MONOCYTES % 10.6 % (0.0-11.0)
[2018-06-21 06:12] LABS: NEUTROPHILS # 6.8 # k/uL (1.4-7.7)
[2018-06-21] MEDS ORDERED: ACETAMINOPHEN 325 MG TABLET PO ONE (06:48)
[2018-06-21] MEDS ORDERED: diphenhydrAMINE HCL 25 MG TABLET PO ONE (06:49)
--- NOTE | 2018-06-21 07:29 | Inpatient Progress Note ---
Subjective - Required Recertification Statement I anticipate X number of days because-include discharge plan: 1 - Review of Systems Events since last encounter: Talked with patient this morning about hemoglobin dropping- she states that she still feels really good and is not really wanting a blood transfusion at this time. She would like to hold off and see how she does- daughter is at the bedside and would like to leave it up to her mom to see how she does. Patient denies any shortness of breath, chest pain, or dizziness. Plan is to wait on blood transfusion and repeat H & H this afternoon. 16:30 Labs repeated- discussed lab work with patient- Patient still holding off on receiving blood at this time. Patient remains asymptomatic. General: Denies: Fatigue HEENT: Denies: Head Aches, Visual Changes Pulmonary: Denies: Dyspnea, Cough Cardiovascular: Denies: Chest Pain, Palpitations, Paroxysmal Noc. Dyspnea Gastrointestinal: Denies: Nausea, Vomiting, Abdominal Pain Genitourinary: Denies: Dysuria Musculoskeletal: Back Pain Neurological: Weakness Objective - Exam Vitals and I&O: Vital Signs Temp 98.5 F 06/21/18 05:45 Pulse 98 H 06/21/18 05:45 Resp 20 06/21/18 05:45 BP 126/64 06/21/18 05:45 Pulse Ox 98 06/21/18 05:47 Intake & Output 06/20/18 06/20/18 06/21/18 11:59 23:59 11:59 Intake Total 1860 1140 243 Output Total 301 Balance 1860 839 243 Intake: IV 1500 820 3 left hand 1500 820 3 Oral 360 320 240 Output: Urine 301 Other: Voiding Method Bedside Commode Bedside Commode # Voids 1 3 # Bowel Movements 0 General: Alert, Oriented to Person, Oriented to Place, Oriented to Time, Cooperative, No acute distress, Average Body Habits HEENT: Atraumatic, PERRLA, Mouth Mucous membr. moist/[place], Nose Mucous membr. moist/[place] Neck: Supple, +2 carotid pulse wo bruit Lungs: Clear to auscultation, Normal air movement, Speaks full Sentences Cardiovascular: Normal S1, Normal S2 Abdomen: Normal bowel sounds, Soft, No tenderness Extremities: No edema, Normal pulses, No tenderness/swelling Skin: Normal, Warm, Dry, Pale, Normal Turgor Neurological: Normal gait, Normal speech, Strength Equal Bilat, Normal tone, Sensation intact Psych/Mental Status: Mental status NL, Mood NL, Appropriate Affect, Intact Judgment - Results Results: Laboratory Results WBC 9.90 K/ul (4.00-12.00) 06/21/18 05:30 RBC 2.35 M/ul (3.90-5.20) L 06/21/18 05:30 Hgb 7.2 g/dL (11.5-16.0) L 06/21/18 05:30 Hct 21.3 % (34.5-46.5) L 06/21/18 05:30 MCV 91.0 fl (80.0-100.0) 06/21/18 05:30 MCH 30.5 pg (28.0-34.0) 06/21/18 05:30 MCHC 33.7 g/dL (30.0-36.0) 06/21/18 05:30 RDW 13.8 % (11.3-14.3) 06/21/18 05:30 Plt Count 115 K/mm3 (130-400) L 06/21/18 05:30 Neut % (Auto) 68.2 % (39.0-79.0) 06/21/18 05:30 Lymph % (Auto) 19.4 % (16.0-50.0) 06/21/18 05:30 [place] % (Auto) 10.6 % (0.0-11.0) 06/21/18 05:30 Eos % (Auto) 1.4 % (0.0-6.8) 06/21/18 05:30 Baso % (Auto) 0.4 % (0.0-1.5) 06/21/18 05:30 Neut # (Auto) 6.8 # k/uL (1.4-7.7) 06/21/18 05:30 Lymph # (Auto) 1.9 # k/uL (0.6-4.0) 06/21/18 05:30 [place] # (Auto) 1.1 # k/uL (0.0-0.9) H 06/21/18 05:30 Eos # (Auto) 0.1 # k/uL (0.0-0.6) 06/21/18 05:30 Baso # (Auto) 0.0 # k/uL (0.0-0.5) 06/21/18 05:30 Sodium 138 mmol/L (137-145) 06/20/18 06:30 Potassium 3.8 mmol/L (3.5-5.1) 06/20/18 06:30 Chloride 105 mmol/L (98-107) 06/20/18 06:30 Carbon Dioxide 31 mmol/L (22-30) H 06/20/18 06:30 BUN 13 mg/dL (7-17) 06/20/18 06:30 Creatinine 0.86 mg/dL (0.52-1.04) 06/20/18 06:30 Estimated Creat Clear 64 06/20/18 06:30 Est GFR ( Amer) > 60 (60-) 06/20/18 06:30 Est GFR (Non-Af Amer) > 60 (60-) 06/20/18 06:30 Glucose 111 mg/dL (74-106) H 06/20/18 06:30 Calcium 8.8 mg/dL (8.4-10.2) 06/20/18 06:30 Total Bilirubin 0.3 mg/dL (0.2-1.3) 06/20/18 06:30 AST 34 U/L (15-46) 06/20/18 06:30 ALT 14 U/L (0-35) 06/20/18 06:30 Alkaline Phosphatase 52 U/L (38-126) 06/20/18 06:30 Total Protein 5.5 g/dL (6.3-8.2) L 06/20/18 06:30 Albumin 2.7 g/dL (3.5-5.0) L 06/20/18 06:30 Assessment/Plan - Assessment/Plan (1) GERD (gastroesophageal reflux disease) Status: Acute Current Visit: No Qualifiers: Esophagitis presence: with esophagitis Qualified Code(s): K21.0 - Gastro- esophageal reflux disease with esophagitis Assessment: Stable Plan: Will continue IV pepcid (2) Hypertension Status: Acute Current Visit: No Qualifiers: Hypertension type: essential hypertension Qualified Code(s): I10 - Essential (primary) hypertension Assessment: Stable (3) Postoperative anemia Status: Acute Current Visit: No Assessment: Pt refusing blood transfusion Plan: Continue with ferrous sulfate (4) Spinal stenosis of lumbar region Status: Acute Current Visit: No Plan: Will continue to treat discomfort s/p surgery (5) Status post lumbar surgery Status: Acute Current Visit: No Plan: Will continue with IS, ambulation, monitoring anemia, dressing dry and intact
[2018-06-21] MEDS: DOCUSATE SODIUM 100 MG CAPSULE PO SCH (09:07)
[2018-06-21] MEDS: CYCLOBENZAPRINE HCL 10 MG TABLET PO SCH ×3 (09:08→20:30)
[2018-06-21] MEDS: TRIAMTERENE/HCTZ 37.5/25MG TAB PO SCH (09:08)
[2018-06-21] MEDS: FAMOTIDINE 20 MG/2 ML VIAL IVP SCH (09:10)
[2018-06-21] MEDS: VITAMIN D3 PO SCH (10:31)
[2018-06-21] MEDS: FISH OIL PO SCH (10:31)
[2018-06-21] MEDS: OMEGA PO SCH (10:31)
[2018-06-21] MEDS: CALCIUM CARBONATE PO SCH (10:31)
[2018-06-21] MEDS: [UNRECOGNIZED DRUG - OTHER] PO SCH (10:31)
[2018-06-21] MEDS: FATTY ACIDS PO SCH (10:31)
[2018-06-21] MEDS: diazePAM 5 MG TABLET PO PRN (10:54)
[2018-06-21] MEDS: FERROUS SULFATE 325 MG TABLET PO SCH ×2 (11:52→18:36)
[2018-06-21] MEDS: POLYETHYLENE GLYCOL 3350 17 GM POWD.PACK PO SCH (11:52)
[2018-06-21 13:32] LABS: MEAN CORPUSCULAR HEMOGLOBIN 30.5 pg (28.0-34.0)
[2018-06-21 20:12] LABS: MEAN CORPUSCULAR HEMOGLOBIN 30.3 pg (28.0-34.0)
[2018-06-22] MEDS: ATORVASTATIN CALCIUM 20 MG TABLET PO SCH (00:26)
[2018-06-22] MEDS: FAMOTIDINE 20 MG/2 ML VIAL IVP SCH (00:27)
[2018-06-22] MEDS ORDERED: FAMOTIDINE 20 MG TABLET ONE (00:27)
[2018-06-22] MEDS: FAMOTIDINE 20 MG TABLET PO SCH ×2 (00:38→08:32)
[2018-06-22] MEDS ORDERED: FAMOTIDINE 20 MG TABLET PEG SCH (01:00)
[2018-06-22] MEDS: diazePAM 5 MG TABLET PO PRN (01:21)
[2018-06-22] MEDS: oxyCODONE/ACETAMINOPHEN 5/325 TABLET PO PRN ×2 (05:14→12:15)
[2018-06-22 05:56] LABS: MEAN CORPUSCULAR HEMOGLOBIN 29.8 pg (28.0-34.0)
--- NOTE | 2018-06-22 07:30 | Discharge Summary ---
Discharge Summary - Discharge [facility] Admission Date: 06/19/18 Discharge Date: 06/22/18 History of Present Illness: Patient is a 72-year-old female being admitted s/p Transformaninal lumbar interbody fusion bilateral L4/5 Revision with hemophilia. She has a chronic history of back pain with history of laminectomy L4-5 with hardware malfunction. It was decided by patient and surgeon to move forward with revision of lumbar surgical procedure. 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 Dressing is dry and intact to the lumbar region. We will get a.m. labs to check H & H and will monitor patient closely this evening. Explained that we would get her up and walk when she felt able, would try clear liquid diet and advance as tolerated. Patient appears to be resting comfortably at this time- daughter is at the bedside. Condition at Discharge: Stable Home Medications: Ambulatory Orders Medication Instructions Recorded Calcium Carbonate/Vitamin D3 1 each PO DAILY 03/23/18 [Calcium 600 + Vit D Caplet] Cyclobenzaprine HCl 30 mg PO TID 03/23/18 Famotidine 40 mg PO DAILY 03/23/18 HYDROcodone /APAP 5/325 [[place] 1 each PO Q4 PRN 03/23/18 5/325] Meloxicam 15 mg PO DAILY 03/23/18 [place]-3 Fatty Acids/Fish Oil [Fish 1 each PO DAILY 03/23/18 Oil 1,000 mg Capsule] Rosuvastatin Calcium [Crestor] 20 mg PO HS 03/23/18 Triamterene/Hydrochlorothiazid 1 each PO DAILY 03/23/18 [Triamterene-Hctz 37.5-25 mg Tb] Consultations this Visit: None Procedures this Visit: Other (s/p Transformaninal lumbar interbody fusion bilateral L4/5 Revision ) Allergies/Adverse Reactions: Allergies Allergy/AdvReac Type Severity Reaction Status Date / Time alendronate sodium Allergy Unknown Verified 03/24/18 07:46 [From Fosamax] aspirin Allergy Unknown Verified 03/24/18 07:46 diclofenac Allergy Unknown Verified 03/24/18 07:46 guaifenesin Allergy Unknown Verified 03/24/18 07:46 raloxifene [From Evista] Allergy Unknown Verified 03/24/18 07:46 simvastatin [From Zocor] Allergy Unknown Verified 03/24/18 07:46 sodium citrate Allergy Unknown Verified 03/24/18 07:46 Sulfa (Sulfonamide Allergy Unknown Verified 03/24/18 07:46 Antibiotics) Discharge Summary: Patient was admitted s/p Transformaninal lumbar interbody fusion bilateral L4/5 Revision with hemophilia. She did very well with the cell saver. Her hemoglobin gradually dropped >7 but patient was not symptomatic- after long discussions she kept refusing blood transfusions- her hgb was up to 7.9 this morning. She is still refusing blood transfusion and states that she feels good. Her dressing to her back has remained dry and intact. She will be discharged to home with daughter awaiting approval for SNF admission to [place] re[facility]nursing facility. Neurovasculars x 4 intact. Hospital Course: IVFs, pain medication, PPI, Incentive spirometry, PT/OT - Final Diagnosis (1) GERD (gastroesophageal reflux disease) Problems: Stable Right or Left: Right (2) Hypertension Problems: Stable Right or Left: Right (3) Postoperative anemia Problems: increasing- up to 7.9 Right or Left: Right (4) Spinal stenosis of lumbar region Problems: stable after back surgery Right or Left: Right (5) Status post lumbar surgery Problems: stable- dressing dry and intact Right or Left: Right
[2018-06-22] MEDS ORDERED: FISH OIL 1,000 MG CAP PO ONE (07:32)
[2018-06-22] MEDS ORDERED: CALCIUM/VIT D 500MG/200 UNIT TABLET ONE (07:33)
[2018-06-22] MEDS: VITAMIN D3 PO SCH (08:31)
[2018-06-22] MEDS: CALCIUM CARBONATE PO SCH (08:31)
[2018-06-22] MEDS: [UNRECOGNIZED DRUG - OTHER] PO SCH (08:31)
[2018-06-22] MEDS: FATTY ACIDS PO SCH (08:32)
[2018-06-22] MEDS: CYCLOBENZAPRINE HCL 10 MG TABLET PO SCH ×2 (08:32→13:11)
[2018-06-22] MEDS: FISH OIL PO SCH (08:32)
[2018-06-22] MEDS: TRIAMTERENE/HCTZ 37.5/25MG TAB PO SCH (08:32)
[2018-06-22] MEDS: OMEGA PO SCH (08:32)
[2018-06-22] MEDS: FERROUS SULFATE 325 MG TABLET PO SCH (10:51)
[2018-06-22] MEDS: POLYETHYLENE GLYCOL 3350 17 GM POWD.PACK PO SCH (10:52)
[2018-06-22 13:40] VITALS: BP 113/59
[2018-06-23] MEDS ORDERED: CALCIUM/VIT D 500MG/200 UNIT TABLET PO SCH (09:00)
[2018-06-23] MEDS ORDERED: FISH OIL 1,000 MG CAP PO SCH (09:00)
--- NOTE | 2018-06-25 11:21 | Operative Note ---
PREOPERATIVE DIAGNOSIS: TLIF construct failure due to hardware loosening, L4-5, with recurrence of spondylolisthesis and recurrent foraminal stenosis, right side L4-5. 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 PROCEDURES PERFORMED: 1. Removal of spinal construct pedicle screws and rods, L4-5. 2. Re-operative laminectomy, right side L4-5, with foraminotomy and complete facetectomy. 3. Neurolysis of the dural sac and right side L4 nerve root. 4. Injection of methyl methacrylate cement into the vertebral bodies L4 and L5 with subsequent replacement of pedicle screws. 5. Distraction foraminotomy and partial reduction of the spondylolisthesis at L4-5. 6. Manipulation of the spine under general anesthesia. 7. Intraoperative fluoroscopy and interpretation for needle placement. 8. Transforaminal lumbar interbody fusion of the lumbar spine using a combination of autologous bone graft fragments and osteoconductive bone graft material. 9. Posterolateral transverse process fusion of the lumbar spine using osteoconductive bone graft material. SURGEON: Nino Plata Jr., M.D. HEEL CEMENTER MACHINE: JAMARCUS Fernandes BC ANESTHESIA: General. COMPLICATIONS: None. CONDITION FOLLOWING THE PROCEDURE: Good. ESTIMATED BLOOD LOSS: 1000 mL. OPERATIVE FINDINGS: This patient has sustained falls postoperatively and also has intrinsically weak bone. For spondylolisthesis, she had achieved reduction at a previous TLIF surgical opportunity. However, there has been loosening of the screws, recurrence of lumbar pain, and recurrence of right radiculopathy due to bone graft migration as the disc space collapsed and L4 returned to its spondylolisthesis position. Considering options, the patient has consented to and we felt it reasonable to remove the construct, place methyl methacrylate cement, reinstall the screws, and to attempt a partial reduction by mainly distraction of the spondylolisthesis site at L4-5, and also perform complete neurolysis of the dural sac and exiting nerve root on the right at L4 where her radicular symptoms were present. This was accomplished, but it was a very arduous and time-consuming task to dissect through the scar tissue and identify the dural sac and eventually identify the exiting L4 nerve root, and subsequently finally get it completely decompressed. Cement into the pedicle screw holes helped secure the screws, hopefully. The patient well understands if this construct again fails, there will need to be much longer instrumentation performed. DESCRIPTION OF PROCEDURE: The patient was taken to the operating room and anesthesia induced. In the prone position, the back was thoroughly scrubbed, sterilely prepped and draped. A longitudinal incision incorporating the old surgical site was made. Electrocautery and Davis elevator were judiciously used until the L5 posterior spinous process was identified. At this point, the lamina was stripped at the periosteum out to the tip of the transverse process. This helped identify the level of the facet joints and pedicles and subsequently on the left and right side, the construct at L4-5 could be visualized. It was dissected free and the endcaps on the pedicle screws on the left and right side at L4 and L5 were then loosened and removed. The rods were then removed. The pedicle screws were then removed and found to be exquisitely loose, especially at L5. Angled curettes were then used to create a space in the depth of the pedicle hole which would give it an upside-down mushroom appearance for acceptance and injection of the methyl methacrylate. The methyl methacrylate was prepared and injected into the screw holes, followed by replacement of the pedicle screws one by one. While the cement was maturing and hardening, attention was directed to the laminectomy site on the right side which was revisited. With great care and going down layer by layer, eventually the dura was found in a normal area and traced superiorly all the way to the inferior aspect of the L3 lamina. As the dural sac was exposed, eventually it was then possible to reveal the most proximal aspect of the L4 exiting nerve root where surgery had not previously been performed. It was then traced distally through scar tissue and eventually a complete and effective neurolysis was obtained. Distraction of the pedicle screws was then performed and rods were then affixed to the pedicle screws with a partial reduction of the spondylolisthesis, but mainly distraction being relied upon to relieve pressure. This created extra space within the intervertebral disc space which then was filled with autologous bone graft from the decompression, and then followed by additional osteoconductive bone graft material. All remaining osteoconductive bone graft material was then placed along the pedicle screw and denis and transverse processes and facet joints. Gelfoam was placed over the laminectomy site. Drains were inserted and the patient was then taken to the recovery room in good condition where gross motor and sensory examination was confirmed to be normal. NINO PLATA JR., M.D. WOR/cjd (Please copy [facility] provider when applicable) Job #[id number] MAT
[2018-07-06] MEDS ORDERED: fentaNYL CITRATE/PF 100 MCG/2 ML INJ. ONE ×2 (15:42)
== END 2018-06-22 15:33 | disposition home or self-care (01) | DRG 30 ==
LOC: OPSURG 06:38 → SOUTH 14:28
PROVIDERS: ADMIT Nurse Practitioner Family; ATTEND Nurse Practitioner Family
PROC: 0SG0071 Fusion of Lumbar Vertebral Joint with Autologous Tissue Substitute, Posterior Approach, Posterior Column, Open Approach (ICD-10-PCS; principal; 2018-06-19)
PROC: 00PU0YZ Removal of Other Device from Spinal Canal, Open Approach (ICD-10-PCS; 2018-06-19)
PROC: 3E0R3TZ Introduction of Destructive Agent into Spinal Canal, Percutaneous Approach (ICD-10-PCS; 2018-06-19)
DX: T85.695A Other mechanical complication of other nervous system device, implant or graft, initial encounter (principal); M48.061 Spinal stenosis, lumbar region without neurogenic claudication; M51.36 Other intervertebral disc degeneration, lumbar region; M43.16 Spondylolisthesis, lumbar region; I10 Essential (primary) hypertension; E78.5 Hyperlipidemia, unspecified; K21.0 Gastro-esophageal reflux disease with esophagitis; M19.90 Unspecified osteoarthritis, unspecified site; E03.9 Hypothyroidism, unspecified; Z14.01 Asymptomatic hemophilia A carrier; Y75.3 Surgical instruments, materials and neurological devices (including sutures) associated with adverse incidents
CPT/HCPCS: 20930; 20936; 22612; 22849; 36415; 63042; 80053; 85014; 85018; 85025; 97116; 97161; 97165; 97530; A9270; J0690; J1885; J2001; J2370; J2405; J2704; J3010; J3490; J7030; J7120; S1016